=== PATIENT | female | born 1950 | race Caucasian/White ===

== ENCOUNTER 2018-02-02 14:40 | Emergency (ER) | payer SELFPAY ==
[~2018-02-02] VITALS: Ht 160 cm; Wt 89.4 kg
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
--- NOTE | 2018-02-02 15:13 | NUR ---
SAMINA RAMOS AT BEDSIDE FOR EVAL.
[2018-02-02] MEDS ORDERED: HYDROCODONE/APAP 5/325MG 1 EACH TABLET ONE (15:19)
[2018-02-02] MEDS ORDERED: TDAP [DIPH/PERTUSSIS/TET] 0.5 ML VIAL IM ONE ×2 (15:20→15:30)
[2018-02-02] MEDS ORDERED: HYDROCODONE/APAP 5/325MG 1 EACH TABLET PO ONE (15:30)
[2018-02-02 16:59] VITALS: BP 135/81
== END 2018-02-02 17:00 | disposition home or self-care (01) ==
LOC: ER 14:48
DX: S80.12XA Contusion of left lower leg, initial encounter (principal); I10 Essential (primary) hypertension; E11.9 Type 2 diabetes mellitus without complications; V79.59XA Passenger on bus injured in collision with other motor vehicles in traffic accident, initial encounter; Y93.89 Activity, other specified; Y92.410 Unspecified street and highway as the place of occurrence of the external cause; Y99.8 Other external cause status
CPT/HCPCS: 73590; 90471; 90715; 99284; A4606; Z7610